=== PATIENT | female | born 1970 | race Caucasian/White ===

== ENCOUNTER 2020-06-05 11:39 | Inpatient (IN) ==
[2020-06-05] MEDS ORDERED: Dexamethasone IV 4 MG/ML VIAL 1 ml VIAL ONE (12:37)
[2020-06-05] MEDS ORDERED: Famotidine IV 10 MG/ML 2 ml VIAL (20 mg) ONE (12:37)
[2020-06-05] MEDS ORDERED: Ondansetron 4 mg VIAL 2 MG/ML 2 ml VIAL ONE (12:37)
[2020-06-05 12:49] LABS: Hematocrit 27 % (35-47); Hemoglobin 8.4 g/dL (12.0-16.0); Mean Corpuscular HGB Conc 31 g/dL (31-36); Mean Corpuscular Hemoglobin 24 pg (27-31); Mean Corpuscular Volume 76 fL (80-97); Mean Platelet Volume 7.7 fL (7.4-10.4); Platelet Count 288 10^3/uL (150-450); Red Blood Count 3.56 10^6 /uL (3.70-4.87); Red Cell Distribution Width 26 % (10-15); White Blood Count 18.1 10^3/uL (3.5-10.8)
[2020-06-05 12:59] LABS: Albumin 2.9 g/dL (3.2-5.2); Albumin/Globulin Ratio 0.7 (1-3); BUN/Creatinine Ratio 23.5 (8-20); Calcium 12.4 mg/dL (8.6-10.3); EGFR African American 60.7 (>60); EGFR Non-African American 50.2 (>60); Globulin 3.9 g/dL (2-4); Magnesium 2.5 mg/dL (1.9-2.7); Potassium 4.2 mmol/L (3.5-5.0); Total Bilirubin 4.9 mg/dL (0.2-1.0); Total Protein 6.8 g/dL (6.4-8.9)
[2020-06-05 13:25] LABS: Polychromasia 1+
[2020-06-05] MEDS ORDERED: Lorazepam PYXIS KEY PRN (13:25)
[2020-06-05] MEDS ORDERED: LORazepam 2 mg VIAL 1 ml IV PUSH PRN (13:25)
[2020-06-05] MEDS: Enoxaparin 40 MG/0.4 ML SYR SUBCUT SCH (16:03)
[2020-06-05] MEDS: NS 0.9% 1000 ml BAG 1,000 ML IV SCH (16:05)
[2020-06-05] MEDS: Famotidine IV 10 MG/ML 2 ml VIAL (20 mg) IV SLOW PU SCH (22:11)
[2020-06-06] MEDS: NS 0.9% 1000 ml BAG 1,000 ML IV SCH ×2 (02:22→18:23)
[2020-06-06] MEDS: Ondansetron 4 mg VIAL 2 MG/ML 2 ml VIAL IV PRN ×3 (05:46→20:24)
[2020-06-06] MEDS: Famotidine IV 10 MG/ML 2 ml VIAL (20 mg) IV SLOW PU SCH ×2 (07:43→20:24)
[2020-06-06 09:00] LABS: Hematocrit 33 % (35-47); Hemoglobin 9.9 g/dL (12.0-16.0); Mean Corpuscular HGB Conc 30 g/dL (31-36); Mean Corpuscular Hemoglobin 25 pg (27-31); Mean Corpuscular Volume 85 fL (80-97); Mean Platelet Volume 8.4 fL (7.4-10.4); Platelet Count 254 10^3/uL (150-450); Red Blood Count 3.91 10^6 /uL (3.70-4.87); Red Cell Distribution Width 27 % (10-15); White Blood Count 19.8 10^3/uL (3.5-10.8)
[2020-06-06 09:02] LABS: ALT 93 U/L (7-52); Albumin 2.9 g/dL (3.2-5.2); Albumin/Globulin Ratio 0.7 (1-3); Alkaline Phosphatase 1044 U/L (34-104); BUN/Creatinine Ratio 24.8 (8-20); Blood Urea Nitrogen 25 mg/dL (6-24); CO2 Carbon Dioxide 17 mmol/L (22-32); Calcium 11.6 mg/dL (8.6-10.3); Chloride 105 mmol/L (101-111); EGFR African American 70.5 (>60); EGFR Non-African American 58.3 (>60); Globulin 3.9 g/dL (2-4); Glucose 83 mg/dL (70-100); Sodium 133 mmol/L (135-145); Total Protein 6.8 g/dL (6.4-8.9)
[2020-06-06 09:27] LABS: Anion Gap 11 mmol/L (2-11)
[2020-06-06] MEDS: Enoxaparin 40 MG/0.4 ML SYR SUBCUT SCH (12:41)
[2020-06-06] MEDS ORDERED: Senna TAB 8.6 mg TAB PO ONE (20:00)
[2020-06-07] MEDS: Ondansetron 4 mg VIAL 2 MG/ML 2 ml VIAL IV PRN ×5 (01:38→19:46)
[2020-06-07] MEDS: NS 0.9% 1000 ml BAG 1,000 ML IV SCH ×3 (01:40→22:50)
[2020-06-07 06:42] LABS: Albumin 2.8 g/dL (3.2-5.2); Albumin/Globulin Ratio 0.8 (1-3); BUN/Creatinine Ratio 24.4 (8-20); Calcium 11.8 mg/dL (8.6-10.3); EGFR African American 80.5 (>60); EGFR Non-African American 66.5 (>60); Globulin 3.7 g/dL (2-4); Potassium 4.2 mmol/L (3.5-5.0); Total Bilirubin 5.6 mg/dL (0.2-1.0); Total Protein 6.5 g/dL (6.4-8.9)
[2020-06-07] MEDS: Famotidine IV 10 MG/ML 2 ml VIAL (20 mg) IV SLOW PU SCH ×2 (07:47→19:46)
[2020-06-07 09:05] LABS: Hematocrit 28 % (35-47); Hemoglobin 8.6 g/dL (12.0-16.0); Mean Corpuscular HGB Conc 31 g/dL (31-36); Mean Corpuscular Hemoglobin 25 pg (27-31); Mean Corpuscular Volume 80 fL (80-97); Mean Platelet Volume 9.5 fL (7.4-10.4); Platelet Count 229 10^3/uL (150-450); Red Blood Count 3.49 10^6 /uL (3.70-4.87); Red Cell Distribution Width 25 % (10-15); White Blood Count 19.1 10^3/uL (3.5-10.8)
[2020-06-07] MEDS: Polyethylene Glycol 3350 17 GM PACKET PO PRN ×2 (09:25→13:16)
[2020-06-07 09:52] LABS: Polychromasia 1+
[2020-06-07 09:53] LABS: ABS Neutrophils 14.7 10^3/ul (1.5-7.7)
[2020-06-07] MEDS: Enoxaparin 40 MG/0.4 ML SYR SUBCUT SCH (13:16)
[2020-06-07] MEDS ORDERED: NS 0.9% IVPB ONE (14:00)
[2020-06-07] MEDS ORDERED: ZOLEDRONIC ACID IVPB ONE (14:00)
[2020-06-08] MEDS: Ondansetron 4 mg VIAL 2 MG/ML 2 ml VIAL IV PRN ×2 (06:44→23:33)
[2020-06-08] MEDS ORDERED: Furosemide 20 mg/2 ml IV VIAL IV ONE (07:00)
[2020-06-08] MEDS: Morphine 2 MG/ML SYRINGE IV PRN ×4 (07:47→23:33)
[2020-06-08] MEDS: Polyethylene Glycol 3350 17 GM PACKET PO PRN (07:47)
[2020-06-08] MEDS: Famotidine IV 10 MG/ML 2 ml VIAL (20 mg) IV SLOW PU SCH ×2 (07:47→21:49)
[2020-06-08 10:31] LABS: Albumin 2.6 g/dL (3.2-5.2); CO2 Carbon Dioxide 15 mmol/L (22-32); Calcium 10.7 mg/dL (8.6-10.3); Chloride 106 mmol/L (101-111); Sodium 134 mmol/L (135-145)
[2020-06-08 10:36] LABS: Anion Gap 13 mmol/L (2-11)
[2020-06-08 10:37] LABS: ALT 136 U/L (7-52); Albumin/Globulin Ratio 0.8 (1-3); Alkaline Phosphatase 1020 U/L (34-104); Blood Urea Nitrogen 28 mg/dL (6-24); EGFR African American 54.1 (>60); EGFR Non-African American 44.7 (>60); Globulin 3.4 g/dL (2-4); Glucose 89 mg/dL (70-100); Lipase 29 U/L (11.0-82.0)
[2020-06-08] MEDS ORDERED: Alteplase (CATHFLO) 2 MG VIAL IV ONE (11:40)
[2020-06-08] MEDS: Enoxaparin 40 MG/0.4 ML SYR SUBCUT SCH (12:45)
[2020-06-08 13:57] LABS: Urine Appearance Cloudy; Urine Bilirubin 2+ (Negative); Urine Blood Negative (Negative); Urine Color Amber; Urine Glucose Negative (Negative); Urine Ketones Negative (Negative); Urine Nitrite Negative (Negative); Urine Protein 1+(30 mg/dL) (Negative); Urine Specific Gravity 1.017 (1.010-1.030); Urine Urobilinogen Positive (Negative)
[2020-06-08 14:01] LABS: Urine Bacteria Absent (Absent); Urine Red Blood Cell Trace(0-2/hpf) (Absent); Urine Squamous Epithelial Cell Present (Absent); Urine White Blood Cell Trace(0-5/hpf) (Absent)
[2020-06-08] MEDS ORDERED: NS 0.9% 1000 ml BAG 1,000 ML IV SCH (14:15)
[2020-06-08 17:47] LABS: Hematocrit 24 % (35-47); Hemoglobin 7.3 g/dL (12.0-16.0); Mean Corpuscular HGB Conc 30 g/dL (31-36); Mean Corpuscular Hemoglobin 25 pg (27-31); Mean Corpuscular Volume 82 fL (80-97); Mean Platelet Volume 8.4 fL (7.4-10.4); Platelet Count 195 10^3/uL (150-450); Red Blood Count 2.98 10^6 /uL (3.70-4.87); Red Cell Distribution Width 25 % (10-15); White Blood Count 16.4 10^3/uL (3.5-10.8)
[2020-06-08 18:38] LABS: ABS Neutrophils 12.8 10^3/ul (1.5-7.7)
[2020-06-09] MEDS: Morphine 2 MG/ML SYRINGE IV PRN ×3 (03:32→22:21)
[2020-06-09 08:14] LABS: Hematocrit 30 % (35-47); Hemoglobin 9.4 g/dL (12.0-16.0); Mean Corpuscular HGB Conc 31 g/dL (31-36); Mean Corpuscular Hemoglobin 26 pg (27-31); Mean Corpuscular Volume 83 fL (80-97); Mean Platelet Volume 8.9 fL (7.4-10.4); Platelet Count 155 10^3/uL (150-450); Red Blood Count 3.64 10^6 /uL (3.70-4.87); Red Cell Distribution Width 21 % (10-15); White Blood Count 14.2 10^3/uL (3.5-10.8)
[2020-06-09] MEDS ORDERED: NS 0.9% 1000 ml BAG 1,000 ML IV ONE (08:31)
[2020-06-09 08:46] LABS: Albumin 1.5 g/dL (3.2-5.2); Albumin/Globulin Ratio 0.7 (1-3); BUN/Creatinine Ratio 17.9 (8-20); EGFR African American 44.3 (>60); EGFR Non-African American 36.6 (>60); Globulin 2.1 g/dL (2-4); Potassium 3.8 mmol/L (3.5-5.0); Total Protein 3.6 g/dL (6.4-8.9)
[2020-06-09 09:25] LABS: Calcium 5.7 mg/dL (8.6-10.3)
[2020-06-09] MEDS: Famotidine IV 10 MG/ML 2 ml VIAL (20 mg) IV SLOW PU SCH ×2 (09:33→20:40)
[2020-06-09] MEDS: Ondansetron 4 mg VIAL 2 MG/ML 2 ml VIAL IV PRN ×2 (09:33→22:21)
[2020-06-09] MEDS ORDERED: Sodium Bicarb 8.4% Vial 50 ML 75 MEQ in NS 0.45% 1000 ml BAG 1,000 ML IV SCH (10:00)
[2020-06-09] MEDS ORDERED: Sodium Bicarbonate 8.4% VIAL 1 MEQ/ML 50 ml VIAL (50 meq) IV ONE (10:00)
[2020-06-09 10:04] LABS: Polychromasia 1+
[2020-06-09 10:05] LABS: ABS Neutrophils 11.5 10^3/ul (1.5-7.7)
[2020-06-09 10:38] LABS: Uric Acid 10.3 mg/dL (2.3-6.6)
[2020-06-09] MEDS ORDERED: Furosemide 100 mg/10 ml IV VIAL IV ONE (11:00)
[2020-06-09] MEDS ORDERED: SODIUM BICARB IVPB ONE (12:00)
[2020-06-09] MEDS ORDERED: Lactated Ringers 1000 ml BAG 1,000 ML IV ONE (13:27)
[2020-06-09 14:13] LABS: INR 2.71 (0.82-1.09)
[2020-06-09 14:24] LABS: BUN/Creatinine Ratio 15.2 (8-20); Blood Urea Nitrogen 43 mg/dL (6-24); CO2 Carbon Dioxide 17 mmol/L (22-32); Calcium 9.4 mg/dL (8.6-10.3); Chloride 106 mmol/L (101-111); EGFR African American 21.5 (>60); EGFR Non-African American 17.7 (>60); Glucose 96 mg/dL (70-100); Magnesium 2.9 mg/dL (1.9-2.7); Phosphorus 5.4 mg/dL (2.5-5.0); Sodium 133 mmol/L (135-145)
[2020-06-09 14:25] LABS: Anion Gap 10 mmol/L (2-11)
[2020-06-09] MEDS: Lactated Ringers 1000 ml BAG 1,000 ML IV SCH (15:02)
[2020-06-09] MEDS: Norepinephrine 16MCG/ML IVPRE 4,000 MCG/250 ML BAG IV SCH ×2 (15:05→22:20)
[2020-06-09 15:06] LABS: Hematocrit 27 % (35-47); Hemoglobin 8.5 g/dL (12.0-16.0); Mean Corpuscular HGB Conc 32 g/dL (31-36); Mean Corpuscular Hemoglobin 27 pg (27-31); Mean Corpuscular Volume 83 fL (80-97); Mean Platelet Volume 8.5 fL (7.4-10.4); Platelet Count 124 10^3/uL (150-450); Red Cell Distribution Width 22 % (10-15); White Blood Count 12.3 10^3/uL (3.5-10.8)
[2020-06-09 15:36] LABS: ABS Neutrophils 10.3 10^3/ul (1.5-7.7)
[2020-06-09 15:37] LABS: ABS Eosinophils 0.2 10^3/ul (0-0.6)
[2020-06-09] MEDS ORDERED: Morphine 2 MG/ML SYRINGE IV PRN (17:30)
[2020-06-09] MEDS: SODIUM BICARB IVPB SCH (20:44)
[2020-06-09] MEDS ORDERED: Sodium Bicarbonate 8.4% SYR 50 ml SYRINGE IV SCH (21:00)
[2020-06-10] MEDS: Morphine 2 MG/ML SYRINGE IV PRN ×2 (00:20→02:10)
[2020-06-10] MEDS: Ondansetron 4 mg VIAL 2 MG/ML 2 ml VIAL IV PRN (02:07)
[2020-06-10] MEDS: Norepinephrine 16MCG/ML IVPRE 4,000 MCG/250 ML BAG IV SCH ×5 (02:33→11:56)
[2020-06-10 04:31] LABS: Albumin 2.4 g/dL (3.2-5.2); Albumin/Globulin Ratio 0.7 (1-3); BUN/Creatinine Ratio 13.9 (8-20); Calcium 8.8 mg/dL (8.6-10.3); EGFR African American 16.6 (>60); EGFR Non-African American 13.7 (>60); Globulin 3.5 g/dL (2-4); Total Bilirubin 8.2 mg/dL (0.2-1.0); Total Protein 5.9 g/dL (6.4-8.9)
[2020-06-10 04:46] LABS: ABS Nucleated RBC 0.5 10^3/ul; Nucleated Red Blood Cells % 4.5
[2020-06-10 04:47] LABS: Hematocrit 29 % (35-47); Hemoglobin 8.9 g/dL (12.0-16.0); Mean Corpuscular HGB Conc 31 g/dL (31-36); Mean Corpuscular Hemoglobin 26 pg (27-31); Mean Corpuscular Volume 85 fL (80-97); Mean Platelet Volume 10.4 fL (7.4-10.4); Platelet Count 144 10^3/uL (150-450); Red Blood Count 3.39 10^6 /uL (3.70-4.87); Red Cell Distribution Width 23 % (10-15); White Blood Count 11.7 10^3/uL (3.5-10.8)
[2020-06-10 04:49] LABS: Potassium 7.5 mmol/L (3.5-5.0)
[2020-06-10] MEDS ORDERED: CALCIUM GLUCONATE 1GM/50ML NS 1 GM/50 ML BAG IV ONE (04:54)
[2020-06-10] MEDS ORDERED: Sodium Bicarbonate 8.4% VIAL 1 MEQ/ML 50 ml VIAL (50 meq) IV ONE (04:56)
[2020-06-10] MEDS ORDERED: Patiromer POWDER 8.4 GM PAK PO SCH (05:00)
[2020-06-10] MEDS ORDERED: Albuterol HFA INHALER 8 gm MDI INH ONE (05:00)
[2020-06-10 08:57] LABS: ABS Neutrophils 9.1 10^3/ul (1.5-7.7)
[2020-06-10] MEDS: SODIUM BICARB IVPB SCH (09:41)
[2020-06-10] MEDS: Famotidine IV 10 MG/ML 2 ml VIAL (20 mg) IV SLOW PU SCH (09:41)
[2020-06-10] MEDS: Lactated Ringers 1000 ml BAG 1,000 ML IV SCH (10:10)
[2020-06-10] MEDS ORDERED: Norepinephrine IV 16 MG in NS 0.9% 250 ml 234 ML IV SCH (12:30)
[2020-06-10 13:50] VITALS: BP 53/42
== END 2020-06-10 13:40 | disposition expired | DRG 754 ==
LOC: CHOA 11:39 → MEDTELE 13:25 → ICU 06-09 14:13
PROVIDERS: ADMIT Internal Medicine Hematology & Oncology; ATTEND Internal Medicine Critical Care Medicine